=== PATIENT | male | born 1990 | race Two or more races ===

== ENCOUNTER 2020-08-29 13:16 | Emergency (ER) | payer BC ==
[~2020-08-29] VITALS: Ht 170.2 cm; Wt 72.6 kg
== END 2020-08-29 14:51 | disposition home or self-care (01) ==
LOC: ER 13:16
DX: S91.134A Puncture wound without foreign body of right lesser toe(s) without damage to nail, initial encounter (principal); W45.0XXA Nail entering through skin, initial encounter; Y93.01 Activity, walking, marching and hiking; Y92.413 State road as the place of occurrence of the external cause; Y99.8 Other external cause status

== ENCOUNTER → 2021-01-01 | Emergency (ER) | payer BC ==
[~2021-01-01] MED LIST: KETO10TA2 PO; ORPHENADRINE C100 MG PO; ULTRAM50 MG PO
== END | disposition left against medical advice (07) ==
LOC: ER 14:08
DX: Z53.20 Procedure and treatment not carried out because of patient's decision for unspecified reasons (principal)

== ENCOUNTER 2021-01-06 20:32 | Emergency (ER) | payer BC ==
[~2021-01-06] VITALS: Ht 170.2 cm; Wt 72.6 kg
== END 2021-01-06 21:19 | disposition home or self-care (01) ==
LOC: ER 20:32
DX: Z48.02 Encounter for removal of sutures (principal)

== ENCOUNTER 2021-01-13 09:03 | Emergency (ER) | payer BC ==
[~2021-01-13] VITALS: Ht 170.2 cm; Wt 72.6 kg
[2021-01-13] MEDS ORDERED: KETO10TA2 PO (11:11)
[2021-01-13] MEDS ORDERED: ORPHENADRINE C100 MG PO (11:11)
[2021-01-13] MEDS ORDERED: ULTRAM50 MG PO (11:11)
== END 2021-01-13 11:41 ==
LOC: ER 09:03
DX: S43.004A Unspecified dislocation of right shoulder joint, initial encounter (principal); X58.XXXA Exposure to other specified factors, initial encounter; Y92.89 Other specified places as the place of occurrence of the external cause